=== PATIENT | female | born 1955 | race Caucasian/White ===

== ENCOUNTER 2016-07-17 18:34 | Emergency (ER) | payer MEDICARE, OTHER ==
[~2016-07-17 18:34] MED LIST: ACCU-CHEK COMB1 EACH SC; BENADRYL25 MG PO; CRESTOR10 MG PO; LANTUS **100 UNITS/ SQ; NOVOLOG VI100 UNIT/1 SQ; OS-CAL500 MG PO; PEPCID AC20 MG PO; SYNTHROID88 MCG PO; VITAMIN C500 M1 PO; VITAMIN D1000 UNI1 PO; ZESTRIL2.5 MG PO
[2016-07-17 21:18] LABS: BASOPHIL 0.3 % (0-2); EOSINOPHIL 0.1 % (0-5); HGB 14.2 g/dl (12.5-16.0); LYMPHOCYTE 6.3 % (15-48); MCH 32.3 pg (25.0-31.0); MCHC 33.8 g/dL (32.0-36.0); MCV 95.5 fL (78.0-100.0); MONOCYTE 4.2 % (0-12); MPV 10.2 fL (6.0-9.5); NEUTROPHIL 89.1 % (41-80); PLT 236 K/uL (150-400); RDW 13.2 % (11.5-14.0); WBC 11.1 K/uL (4.0-10.5)
[2016-07-17 21:35] LABS: ALBUMIN 3.6 g/dL (3.5-5.0); BILIRUBIN - TOTAL 0.6 mg/dL (0.1-1.0); CREATININE 0.7 mg/dL (0.5-1.0); GLOBULIN (CALCULATION) 2.5 g/dL (2.2-4.2); POTASSIUM 4.8 mmol/L (3.5-5.1); TOTAL PROTEIN 6.1 g/dL (6.4-8.3)
[2016-07-17 23:26] LABS: BILIRUBIN NEGATIVE (NEGATIVE); BLOOD NEGATIVE Ery/uL (NEGATIVE); CLARITY CLEAR (CLEAR); COLOR YELLOW (YELLOW); GLUCOSE (U) TRACE mg/dL (NORMAL); KETONE (U) 1+ (SMALL) mg/dL (NEGATIVE); LEUKOCYTES TRACE Leu/uL (NEGATIVE); NITRITE NEGATIVE (NEGATIVE); PROTEIN TRACE (LOW) mg/dL (NEGATIVE); SPECIFIC GRAVITY 1.025 (1.001-1.030)
[2016-07-17 23:28] LABS: URINARY RBC RARE
[2016-07-17 23:29] LABS: BACTERIA TRACE
== END 2016-07-18 01:20 | disposition home or self-care (01) ==
LOC: FER 18:34
PROVIDERS: Physician Assistant Medical
DX: E10.649 Type 1 diabetes mellitus with hypoglycemia without coma (principal); R11.2 Nausea with vomiting, unspecified; E10.40 Type 1 diabetes mellitus with diabetic neuropathy, unspecified; F17.210 Nicotine dependence, cigarettes, uncomplicated; Z88.8 Allergy status to other drugs, medicaments and biological substances; Z96.41 Presence of insulin pump (external) (internal)
CPT/HCPCS: 36415; 71010; 80053; 81001; 84484; 85025; 93005; J2405

== ENCOUNTER 2020-03-23 00:48 | Inpatient (IN) | payer MEDICARE ==
[~2020-03-23 00:48] MED LIST changes: +ASCORBIC ACID500 MG PO; +ASPIRIN EC81 MG PO; +AZITHROMYCIN250 MG PO; +BACITRACIN15 GM TOP; +BASAGLAR K100 UNIT/1 SC; +FOLIC ACID1 MG PO; +HUMULIN R100 UNIT/2 SC; +INSULIN PUMP; +LANTUS **100 UNITS/ SC; +LEVAQUIN500 MG PO; +LEVAQUIN750 M1 PO; +LOPRESSOR25 MG PO; +MAGIC MOUTHWASH BLM SSP; +NOVOLOG DO100 UNIT/M SC; +NOVOLOG VI100 UNIT/1 SC; +OMNIPOD DASH1 EACH XX; +VITAMIN D32000 UNI2 PO
[2020-03-23 01:23] LABS: BILIRUBIN NEGATIVE (NEGATIVE); BLOOD NEGATIVE Ery/uL (NEGATIVE); CLARITY CLEAR (CLEAR); COLOR YELLOW (YELLOW); GLUCOSE (U) 3+ mg/dL (NORMAL); LEUKOCYTES NEGATIVE Leu/uL (NEGATIVE); NITRITE NEGATIVE (NEGATIVE); PROTEIN TRACE (LOW) mg/dL (NEGATIVE); SPECIFIC GRAVITY >=1.030 (1.001-1.030); UROBILINOGEN 0.2 mg/dL (0.2-1.0); pH 5.5 (5.0-9.0)
[2020-03-23 01:36] LABS: BASOPHIL 0.4 % (0-2); EOSINOPHIL 0.1 % (0-5); HCT 39.5 % (37.0-47.0); HGB 10.5 g/dl (12.5-16.0); LYMPHOCYTE 6.7 % (15-48); MCH 32.3 pg (25.0-31.0); MCHC 26.6 g/dL (32.0-36.0); MCV 121.5 fL (78.0-100.0); MONOCYTE 7.4 % (0-12); MPV 10.6 fL (6.0-9.5); NEUTROPHIL 82.7 % (41-80); NRBC 0; PLT 323 K/uL (150-400); RBC 3.25 M/uL (4.20-5.40); RDW 13.7 % (11.5-14.0)
[2020-03-23 01:39] LABS: WBC 21.1 K/uL (4.0-10.5)
[2020-03-23 01:41] LABS: AMPHETAMINES NEGATIVE (NEGATIVE); BARBITURATES NEGATIVE (NEGATIVE); ECSTASY (MDMA) NEGATIVE (NEGATIVE); MARIJUANA (THC) NEGATIVE (NEGATIVE); METHADONE NEGATIVE (NEGATIVE); OPIATES NEGATIVE (NEGATIVE); OXYCODONE NEGATIVE (NEGATIVE)
[2020-03-23 01:48] LABS: INR 1.39 (0.9-1.2); PROTHROMBIN TIME 16.2 SECONDS (11.4-13.6); PTT 29.4 SECONDS (22.2-34.7)
[2020-03-23 01:56] LABS: CORONAVIRUS 2019 SARS-COV-2 NEGATIVE (NEGATIVE); INFLUENZA A NAA NEGATIVE (NEGATIVE)
[2020-03-23 01:59] LABS: ALBUMIN 2.5 g/dL (3.4-5.0); ALKALINE PHOSHATASE 141 U/L (46-116); ALT 60 U/L (14-59); AST 89 U/L (15-37); BILIRUBIN - TOTAL 0.6 mg/dL (0.2-1.0); BUN 72 mg/dL (7-18); BUN/CREAT RATIO (CALC) 21.9 RATIO; CHLORIDE 90 mmol/L (98-107); CREATININE 3.29 mg/dL (0.51-0.95); GLOBULIN (CALCULATION) 3.2 g/dL; LIPASE 216 U/L (73-393); MAGNESIUM 2.5 mg/dL (1.8-2.4); TOTAL PROTEIN 5.7 g/dL (6.4-8.2)
[2020-03-23 02:00] LABS: GLUCOSE >750 mg/dL (74-106); POTASSIUM 8.1 mmol/L (3.5-5.1)
[2020-03-23 02:02] LABS: CO2 (BICARBONATE) 6 mmol/L (21-32)
[2020-03-23 02:54] LABS: LACTIC ACID 11.4 mmol/L (0.4-1.9)
[2020-03-23 04:03] LABS: BUN 65 mg/dL (7-18); BUN/CREAT RATIO (CALC) 20.9 RATIO; CHLORIDE 95 mmol/L (98-107); CREATININE 3.11 mg/dL (0.51-0.95)
[2020-03-23 04:04] LABS: GLUCOSE >750 mg/dL (74-106)
[2020-03-23 04:05] LABS: CO2 (BICARBONATE) 7 mmol/L (21-32); POTASSIUM 6.6 mmol/L (3.5-5.1)
[2020-03-23 06:24] LABS: BUN 70 mg/dL (7-18); CHLORIDE 97 mmol/L (98-107); CO2 (BICARBONATE) 10 mmol/L (21-32); CREATININE 3.04 mg/dL (0.51-0.95)
[2020-03-23 06:29] LABS: GLUCOSE >750 mg/dL (74-106); POTASSIUM 4.8 mmol/L (3.5-5.1)
[2020-03-23 11:00] LABS: BUN 58 mg/dL (7-18); BUN/CREAT RATIO (CALC) 24.8 RATIO; CHLORIDE 103 mmol/L (98-107); CO2 (BICARBONATE) 17 mmol/L (21-32); CREATININE 2.34 mg/dL (0.51-0.95); POTASSIUM 3.9 mmol/L (3.5-5.1)
[2020-03-23 11:13] LABS: GLUCOSE >750 mg/dL (74-106)
--- NOTE | 2020-03-23 14:22 | NUR ---
TRANSFERRED BY EMS TO [facility] ICU. REPORT GIVEN TO ISRA HIGGINS. TRANSPORTED WITH LEVOPHED AND INSULIN DRIPS. MOTHER AND SON NOTIFIED OF TRANSFER.
== END 2020-03-23 13:45 | disposition other institution (70) | DRG 871 ==
LOC: FER 00:48 → FICU 03:32
PROVIDERS: Allergy & Immunology Allergy; Nurse Practitioner; Student in an Organized Health Care Education/Training Program; ADMIT Internal Medicine
DX: A41.9 Sepsis, unspecified organism (principal); R65.21 Severe sepsis with septic shock; E11.10 Type 2 diabetes mellitus with ketoacidosis without coma; G93.41 Metabolic encephalopathy; N17.9 Acute kidney failure, unspecified; Z79.4 Long term (current) use of insulin; E87.5 Hyperkalemia; E03.9 Hypothyroidism, unspecified; N18.30 Chronic kidney disease, stage 3 unspecified; E78.5 Hyperlipidemia, unspecified; F41.1 Generalized anxiety disorder; Z98.51 Tubal ligation status; Z98.49 Cataract extraction status, unspecified eye; Z98.890 Other specified postprocedural states; F17.210 Nicotine dependence, cigarettes, uncomplicated
CPT/HCPCS: 36415; 36600; 71045; 80048; 80053; 80305; 81003; 82009; 82803; 82962; 83036; 83605; 83690; 83735; 84100; 84145; 84484; 85025; 85610; 85730; 87040; 93005; 96365; 96375; J0610; J0692; J1644; J2405; J7030; J7060; J7120; U0002

== ENCOUNTER 2020-04-01 02:18 | Emergency (ER) | payer MEDICARE ==
[2020-04-01 02:52] LABS: BASOPHIL 0.6 % (0-2); EOSINOPHIL 1.2 % (0-5); HCT 35.7 % (37.0-47.0); HGB 11.1 g/dl (12.5-16.0); LYMPHOCYTE 27.3 % (15-48); MCH 31.8 pg (25.0-31.0); MCHC 31.1 g/dL (32.0-36.0); MCV 102.3 fL (78.0-100.0); MONOCYTE 9.3 % (0-12); MPV 9.9 fL (6.0-9.5); NRBC 0; PLT 565 K/uL (150-400); RBC 3.49 M/uL (4.20-5.40); RDW 14.6 % (11.5-14.0)
[2020-04-01 02:53] LABS: BILIRUBIN NEGATIVE (NEGATIVE); BLOOD NEGATIVE Ery/uL (NEGATIVE); CLARITY CLEAR (CLEAR); COLOR YELLOW (YELLOW); GLUCOSE (U) NORMAL (NORMAL); LEUKOCYTES NEGATIVE Leu/uL (NEGATIVE); NITRITE NEGATIVE (NEGATIVE); PROTEIN NEGATIVE (NEGATIVE); SPECIFIC GRAVITY 1.025 (1.001-1.030); pH 6.5 (5.0-9.0)
[2020-04-01 02:54] LABS: ALBUMIN 3.2 g/dL (3.4-5.0); BILIRUBIN - TOTAL 0.3 mg/dL (0.2-1.0); BUN/CREAT RATIO (CALC) 18.9 RATIO; CREATININE 1.11 mg/dL (0.51-0.95); GLOBULIN (CALCULATION) 3.2 g/dL; NEUTROPHIL 56.3 % (41-80); POTASSIUM 5.1 mmol/L (3.5-5.1); TOTAL PROTEIN 6.4 g/dL (6.4-8.2)
[2020-04-01 02:56] LABS: AMPHETAMINES NEGATIVE (NEGATIVE); BARBITURATES NEGATIVE (NEGATIVE); ECSTASY (MDMA) NEGATIVE (NEGATIVE); MARIJUANA (THC) NEGATIVE (NEGATIVE); METHADONE NEGATIVE (NEGATIVE); OPIATES NEGATIVE (NEGATIVE); OXYCODONE NEGATIVE (NEGATIVE)
[2020-04-01 03:02] LABS: LACTIC ACID 7.6 mmol/L (0.4-1.9)
[2020-04-01 06:46] LABS: BUN/CREAT RATIO (CALC) 22.7 RATIO; CREATININE 0.97 mg/dL (0.51-0.95); POTASSIUM 5.1 mmol/L (3.5-5.1)
== END 2020-04-01 12:23 | disposition home or self-care (01) ==
LOC: FER 02:18
PROVIDERS: Emergency Medicine
DX: E10.649 Type 1 diabetes mellitus with hypoglycemia without coma (principal); I95.9 Hypotension, unspecified; S00.512A Abrasion of oral cavity, initial encounter; R00.0 Tachycardia, unspecified; I12.9 Hypertensive chronic kidney disease with stage 1 through stage 4 chronic kidney disease, or unspecified chronic kidney disease; E10.22 Type 1 diabetes mellitus with diabetic chronic kidney disease; N18.30 Chronic kidney disease, stage 3 unspecified; F17.210 Nicotine dependence, cigarettes, uncomplicated; Z87.440 Personal history of urinary (tract) infections; Z88.8 Allergy status to other drugs, medicaments and biological substances; Z91.041 Radiographic dye allergy status; Z79.82 Long term (current) use of aspirin; Z79.899 Other long term (current) drug therapy; X58.XXXA Exposure to other specified factors, initial encounter; Z20.822 Contact with and (suspected) exposure to COVID-19
CPT/HCPCS: 36415; 36600; 70450; 71045; 80048; 80053; 80305; 81003; 82550; 82803; 83605; 84484; 85025; 87040; 87088; 93005; 96365; 96367; 96368; 96372; 96375; J2543; J3370; J3480; J7030; J7050; U0002

== ENCOUNTER 2020-04-23 13:37 | Emergency (ER) | payer MEDICARE ==
[2020-04-23 14:04] LABS: BASOPHIL 0.6 % (0-2); EOSINOPHIL 1.4 % (0-5); HCT 41.3 % (37.0-47.0); LYMPHOCYTE 11.6 % (15-48); MCH 31.7 pg (25.0-31.0); MCHC 31.5 g/dL (32.0-36.0); MCV 100.7 fL (78.0-100.0); MONOCYTE 8.1 % (0-12); MPV 10.1 fL (6.0-9.5); NEUTROPHIL 77.8 % (41-80); NRBC 0; PLT 262 K/uL (150-400); RDW 13.9 % (11.5-14.0); WBC 8.9 K/uL (4.0-10.5)
[2020-04-23 14:26] LABS: ALBUMIN 3.4 g/dL (3.4-5.0); BILIRUBIN - TOTAL 0.4 mg/dL (0.2-1.0); BUN/CREAT RATIO (CALC) 19.1 RATIO; CREATININE 0.89 mg/dL (0.51-0.95); GLOBULIN (CALCULATION) 3.6 g/dL; POTASSIUM 4.1 mmol/L (3.5-5.1)
== END 2020-04-23 16:50 | disposition home or self-care (01) ==
LOC: FER 13:37
PROVIDERS: Physician Assistant
DX: E10.649 Type 1 diabetes mellitus with hypoglycemia without coma (principal); E10.43 Type 1 diabetes mellitus with diabetic autonomic (poly)neuropathy; K31.84 Gastroparesis; E10.22 Type 1 diabetes mellitus with diabetic chronic kidney disease; N18.9 Chronic kidney disease, unspecified; F17.210 Nicotine dependence, cigarettes, uncomplicated; Z88.8 Allergy status to other drugs, medicaments and biological substances; Z91.041 Radiographic dye allergy status
CPT/HCPCS: 36415; 80053; 85025; J2405

== ENCOUNTER 2020-04-25 23:02 | Emergency (ER) | payer MEDICARE ==
[2020-04-26 00:03] LABS: ALBUMIN 3.5 g/dL (3.4-5.0); BILIRUBIN - TOTAL 0.4 mg/dL (0.2-1.0); BUN/CREAT RATIO (CALC) 20.4 RATIO; CREATININE 0.93 mg/dL (0.51-0.95); GLOBULIN (CALCULATION) 3.7 g/dL; POTASSIUM 3.9 mmol/L (3.5-5.1); TOTAL PROTEIN 7.2 g/dL (6.4-8.2)
[2020-04-26 00:20] LABS: BASOPHIL 0.4 % (0-2); EOSINOPHIL 0.7 % (0-5); HCT 34.7 % (37.0-47.0); HGB 11.3 g/dl (12.5-16.0); LYMPHOCYTE 9.1 % (15-48); MCH 32.1 pg (25.0-31.0); MCHC 32.6 g/dL (32.0-36.0); MCV 98.6 fL (78.0-100.0); MONOCYTE 8.2 % (0-12); MPV 9.8 fL (6.0-9.5); NEUTROPHIL 81.2 % (41-80); NRBC 0; PLT 208 K/uL (150-400); RBC 3.52 M/uL (4.20-5.40); RDW 13.6 % (11.5-14.0); WBC 7.2 K/uL (4.0-10.5)
[2020-04-26 03:55] LABS: BILIRUBIN NEGATIVE (NEGATIVE); BLOOD NEGATIVE Ery/uL (NEGATIVE); CLARITY CLEAR (CLEAR); COLOR YELLOW (YELLOW); GLUCOSE (U) 1+ mg/dL (NORMAL); LEUKOCYTES NEGATIVE Leu/uL (NEGATIVE); NITRITE NEGATIVE (NEGATIVE); PROTEIN TRACE (LOW) mg/dL (NEGATIVE); SPECIFIC GRAVITY 1.025 (1.001-1.030); UROBILINOGEN 0.2 mg/dL (0.2-1.0); pH 5.5 (5.0-9.0)
[2020-04-26 03:58] LABS: BACTERIA TRACE; URINARY RBC RARE
[2020-04-26] MEDS ORDERED: ZPAK PO (05:29)
== END 2020-04-26 09:40 | disposition home or self-care (01) ==
LOC: FER 23:02
PROVIDERS: Emergency Medicine Emergency Medical Services
DX: E10.649 Type 1 diabetes mellitus with hypoglycemia without coma (principal); J06.9 Acute upper respiratory infection, unspecified; Z98.890 Other specified postprocedural states; Z90.49 Acquired absence of other specified parts of digestive tract; Z88.8 Allergy status to other drugs, medicaments and biological substances
CPT/HCPCS: 36415; 71045; 80053; 81001; 84484; 85025; J7030

== ENCOUNTER 2020-05-05 18:28 | Emergency (ER) | payer MEDICARE ==
[~2020-05-05 18:28] MED LIST changes: +ZPAK PO
[2020-05-05 20:00] LABS: BASOPHIL 0.5 % (0-2); EOSINOPHIL 0.9 % (0-5); HGB 12.4 g/dl (12.5-16.0); LYMPHOCYTE 10.4 % (15-48); MCHC 32.6 g/dL (32.0-36.0); MCV 97.9 fL (78.0-100.0); MPV 9.9 fL (6.0-9.5); NEUTROPHIL 79.8 % (41-80); NRBC 0; PLT 274 K/uL (150-400); RBC 3.88 M/uL (4.20-5.40); RDW 13.2 % (11.5-14.0); WBC 7.7 K/uL (4.0-10.5)
[2020-05-05 20:17] LABS: BUN/CREAT RATIO (CALC) 16.7 RATIO; CREATININE 0.9 mg/dL (0.51-0.95); POTASSIUM 4.5 mmol/L (3.5-5.1)
== END 2020-05-05 22:35 | disposition home or self-care (01) ==
LOC: FER 18:28
PROVIDERS: Nurse Practitioner Family
DX: E10.649 Type 1 diabetes mellitus with hypoglycemia without coma (principal); T68.XXXA Hypothermia, initial encounter; Z88.8 Allergy status to other drugs, medicaments and biological substances
CPT/HCPCS: 36415; 80048; 85025; 99285; J7120

== ENCOUNTER 2020-06-22 00:05 | Emergency (ER) | payer MEDICARE ==
[2020-06-22 00:32] LABS: BASOPHIL 0.7 % (0-2); EOSINOPHIL 1.3 % (0-5); HCT 43.2 % (37.0-47.0); HGB 14.1 g/dl (12.5-16.0); LYMPHOCYTE 20.1 % (15-48); MCH 31.1 pg (25.0-31.0); MCHC 32.6 g/dL (32.0-36.0); MCV 95.2 fL (78.0-100.0); MONOCYTE 9.4 % (0-12); MPV 10.6 fL (6.0-9.5); NRBC 0; PLT 287 K/uL (150-400); RBC 4.54 M/uL (4.20-5.40); WBC 8.8 K/uL (4.0-10.5)
[2020-06-22 01:00] LABS: ALBUMIN 3.8 g/dL (3.4-5.0); BILIRUBIN - TOTAL 0.4 mg/dL (0.2-1.0); BUN/CREAT RATIO (CALC) 17.4 RATIO; CREATININE 1.09 mg/dL (0.51-0.95); GLOBULIN (CALCULATION) 3.7 g/dL; POTASSIUM 5.5 mmol/L (3.5-5.1); TOTAL PROTEIN 7.5 g/dL (6.4-8.2)
== END 2020-06-22 06:35 | disposition home or self-care (01) ==
LOC: FER 00:05
PROVIDERS: Emergency Medicine
DX: E16.2 Hypoglycemia, unspecified (principal); R40.1 Stupor; Z88.8 Allergy status to other drugs, medicaments and biological substances
CPT/HCPCS: 36415; 80053; 84443; 85025; 93005; J7042

== ENCOUNTER 2020-07-21 21:00 | Emergency (ER) | payer MEDICARE ==
[2020-07-21 22:20] LABS: BASOPHIL 0.4 % (0-2); EOSINOPHIL 0.8 % (0-5); HCT 41.3 % (37.0-47.0); HGB 13.3 g/dl (12.5-16.0); LYMPHOCYTE 8.2 % (15-48); MCH 30.2 pg (25.0-31.0); MCHC 32.2 g/dL (32.0-36.0); MCV 93.9 fL (78.0-100.0); MONOCYTE 7.1 % (0-12); MPV 9.9 fL (6.0-9.5); NEUTROPHIL 83.1 % (41-80); NRBC 0; PLT 285 K/uL (150-400); RDW 13.8 % (11.5-14.0); WBC 8.9 K/uL (4.0-10.5)
[2020-07-21 22:46] LABS: ALBUMIN 3.4 g/dL (3.4-5.0); BILIRUBIN - TOTAL 0.5 mg/dL (0.2-1.0); CREATININE 1.01 mg/dL (0.51-0.95); GLOBULIN (CALCULATION) 3.2 g/dL; POTASSIUM 5.2 mmol/L (3.5-5.1); TOTAL PROTEIN 6.6 g/dL (6.4-8.2)
[2020-07-21 22:48] LABS: LACTIC ACID 1.2 mmol/L (0.4-1.9)
== END 2020-07-22 05:55 | disposition home or self-care (01) ==
LOC: FER 21:00
PROVIDERS: Emergency Medicine
DX: E11.649 Type 2 diabetes mellitus with hypoglycemia without coma (principal); I10 Essential (primary) hypertension; Z88.8 Allergy status to other drugs, medicaments and biological substances; Z79.82 Long term (current) use of aspirin; Z96.41 Presence of insulin pump (external) (internal); Z79.899 Other long term (current) drug therapy
CPT/HCPCS: 36415; 71045; 80053; 83605; 84484; 85025; 93005; J7030

== ENCOUNTER 2020-07-29 23:50 | Emergency (ER) | payer MEDICARE ==
[2020-07-30 01:37] LABS: BASOPHIL 0.5 % (0-2); EOSINOPHIL 0.8 % (0-5); HCT 40.7 % (37.0-47.0); HGB 13.3 g/dl (12.5-16.0); LYMPHOCYTE 8.9 % (15-48); MCH 30.6 pg (25.0-31.0); MCHC 32.7 g/dL (32.0-36.0); MCV 93.8 fL (78.0-100.0); MONOCYTE 7.6 % (0-12); MPV 10.2 fL (6.0-9.5); NEUTROPHIL 81.7 % (41-80); NRBC 0; PLT 248 K/uL (150-400); RBC 4.34 M/uL (4.20-5.40); WBC 8.6 K/uL (4.0-10.5)
[2020-07-30 01:50] LABS: ALBUMIN 3.4 g/dL (3.4-5.0); ALKALINE PHOSHATASE 132 U/L (46-116); ALT 19 U/L (14-59); AST 21 U/L (15-37); BILIRUBIN - TOTAL 0.4 mg/dL (0.2-1.0); BUN 18 mg/dL (7-18); BUN/CREAT RATIO (CALC) 19.8 RATIO; C-REACTIVE PROTEIN < 0.20 mg/dL (<=0.90); CHLORIDE 103 mmol/L (98-107); CO2 (BICARBONATE) 27 mmol/L (21-32); CREATININE 0.91 mg/dL (0.51-0.95); GLOBULIN (CALCULATION) 3.7 g/dL; GLUCOSE 117 mg/dL (74-106); POTASSIUM 4.4 mmol/L (3.5-5.1); TOTAL PROTEIN 7.1 g/dL (6.4-8.2)
[2020-07-30 01:54] LABS: LACTIC ACID 1.4 mmol/L (0.4-1.9)
[2020-07-30 04:18] LABS: CLARITY HAZY (CLEAR); COLOR YELLOW (YELLOW); PROTEIN 1+ mg/dL (NEGATIVE); SPECIFIC GRAVITY > 1.030 (1.001-1.030); pH 5.5 (5.0-9.0)
[2020-07-30 04:19] LABS: BILIRUBIN NEGATIVE (NEGATIVE); BLOOD NEGATIVE Ery/uL (NEGATIVE); GLUCOSE (U) NORMAL (NORMAL); LEUKOCYTES TRACE Leu/uL (NEGATIVE); NITRITE NEGATIVE (NEGATIVE); UROBILINOGEN 0.2 mg/dL (0.2-1.0)
[2020-07-30 04:20] LABS: BACTERIA 2+; MUCOUS TRACE
[2020-07-30 04:21] LABS: AMORPHOUS URATES CRYSTALS TRACE
== END 2020-07-30 10:45 | disposition home or self-care (01) ==
LOC: FER 23:50
PROVIDERS: Emergency Medicine Emergency Medical Services
DX: E10.649 Type 1 diabetes mellitus with hypoglycemia without coma (principal); E86.0 Dehydration; I10 Essential (primary) hypertension; F17.210 Nicotine dependence, cigarettes, uncomplicated; Z88.8 Allergy status to other drugs, medicaments and biological substances
CPT/HCPCS: 36415; 71045; 80053; 81001; 83605; 84484; 85025; 86140; 87040; J2405; J7030; J7120

== ENCOUNTER 2020-11-07 13:00 | Emergency (ER) | payer MEDICARE ==
[2020-11-07 14:15] LABS: BASOPHIL 0.8 % (0-2); EOSINOPHIL 0.8 % (0-5); HCT 46.5 % (37.0-47.0); HGB 15.2 g/dl (12.5-16.0); LYMPHOCYTE 13.4 % (15-48); MCH 32.2 pg (25.0-31.0); MCHC 32.7 g/dL (32.0-36.0); MCV 98.5 fL (78.0-100.0); MONOCYTE 9.2 % (0-12); MPV 9.8 fL (6.0-9.5); NEUTROPHIL 75.5 % (41-80); NRBC 0; PLT 245 K/uL (150-400); RBC 4.72 M/uL (4.20-5.40); WBC 6.6 K/uL (4.0-10.5)
[2020-11-07 14:43] LABS: BUN/CREAT RATIO (CALC) 20.6 RATIO; CREATININE 1.02 mg/dL (0.51-0.95); POTASSIUM 4.6 mmol/L (3.5-5.1)
== END 2020-11-07 16:24 | disposition home or self-care (01) ==
LOC: FER 13:00
PROVIDERS: Nurse Practitioner Family
DX: E10.649 Type 1 diabetes mellitus with hypoglycemia without coma (principal); Z88.8 Allergy status to other drugs, medicaments and biological substances
CPT/HCPCS: 36415; 80048; 85025; J7120

== ENCOUNTER 2020-11-10 09:34 | Emergency (ER) | payer OTHER, MEDICARE ==
[~2020-11-10] VITALS: Ht 152.4 cm; Wt 52.2 kg
[2020-11-10 10:10] LABS: BASOPHIL 0.8 % (0-2); EOSINOPHIL 1.2 % (0-5); HCT 45.6 % (37.0-47.0); HGB 14.9 g/dl (12.5-16.0); LYMPHOCYTE 16.5 % (15-48); MCH 32.3 pg (25.0-31.0); MCHC 32.7 g/dL (32.0-36.0); MCV 98.7 fL (78.0-100.0); MONOCYTE 8.7 % (0-12); MPV 9.7 fL (6.0-9.5); NEUTROPHIL 72.2 % (41-80); NRBC 0; PLT 269 K/uL (150-400); RBC 4.62 M/uL (4.20-5.40); RDW 13.1 % (11.5-14.0); WBC 8.4 K/uL (4.0-10.5)
[2020-11-10 10:11] LABS: BILIRUBIN NEGATIVE (NEGATIVE); BLOOD NEGATIVE Ery/uL (NEGATIVE); CLARITY CLEAR (CLEAR); COLOR YELLOW (YELLOW); GLUCOSE (U) 3+ mg/dL (NORMAL); LEUKOCYTES NEGATIVE Leu/uL (NEGATIVE); NITRITE NEGATIVE (NEGATIVE); PROTEIN NEGATIVE (NEGATIVE); SPECIFIC GRAVITY 1.025 (1.001-1.030); UROBILINOGEN 0.2 mg/dL (0.2-1.0); pH 5.5 (5.0-9.0)
[2020-11-10 10:35] LABS: ALBUMIN 3.6 g/dL (3.4-5.0); BILIRUBIN - TOTAL 0.4 mg/dL (0.2-1.0); BUN/CREAT RATIO (CALC) 23.4 RATIO; CREATININE 1.11 mg/dL (0.51-0.95); GLOBULIN (CALCULATION) 3.7 g/dL; POTASSIUM 4.3 mmol/L (3.5-5.1); TOTAL PROTEIN 7.3 g/dL (6.4-8.2)
== END 2020-11-10 14:55 | disposition home or self-care (01) ==
LOC: FER 09:34
PROVIDERS: Emergency Medicine
DX: T68.XXXA Hypothermia, initial encounter (principal); E10.649 Type 1 diabetes mellitus with hypoglycemia without coma; E07.9 Disorder of thyroid, unspecified; Z88.8 Allergy status to other drugs, medicaments and biological substances
CPT/HCPCS: 36415; 70450; 71045; 80053; 81003; 85025; 93005

== ENCOUNTER 2020-11-18 12:49 | Emergency (ER) | payer OTHER, MEDICARE ==
[2020-11-18 13:17] LABS: BASOPHIL 0.4 % (0-2); EOSINOPHIL 0.4 % (0-5); HCT 42.4 % (37.0-47.0); LYMPHOCYTE 8.4 % (15-48); MCH 32.5 pg (25.0-31.0); MCV 98.4 fL (78.0-100.0); MONOCYTE 5.4 % (0-12); MPV 10.1 fL (6.0-9.5); NEUTROPHIL 84.9 % (41-80); NRBC 0; PLT 240 K/uL (150-400); RBC 4.31 M/uL (4.20-5.40); RDW 12.6 % (11.5-14.0); WBC 9.4 K/uL (4.0-10.5)
[2020-11-18 13:36] LABS: ALBUMIN 3.5 g/dL (3.4-5.0); BILIRUBIN - TOTAL 0.6 mg/dL (0.2-1.0); BUN/CREAT RATIO (CALC) 24.2 RATIO; CREATININE 0.91 mg/dL (0.51-0.95); GLOBULIN (CALCULATION) 3.2 g/dL; POTASSIUM 3.8 mmol/L (3.5-5.1); TOTAL PROTEIN 6.7 g/dL (6.4-8.2)
== END 2020-11-18 17:51 | disposition home or self-care (01) ==
LOC: FER 12:49
PROVIDERS: Emergency Medicine
DX: E11.649 Type 2 diabetes mellitus with hypoglycemia without coma (principal); T38.3X5A Adverse effect of insulin and oral hypoglycemic [antidiabetic] drugs, initial encounter; F17.210 Nicotine dependence, cigarettes, uncomplicated; Z88.8 Allergy status to other drugs, medicaments and biological substances
CPT/HCPCS: 36415; 80053; 85025; 99284

== ENCOUNTER 2021-03-05 08:35 | Emergency (ER) | payer MEDICARE ==
[2021-03-05 09:14] LABS: BASOPHIL 0.7 % (0-2); EOSINOPHIL 1.3 % (0-5); HCT 44.7 % (37.0-47.0); HGB 14.5 g/dl (12.5-16.0); LYMPHOCYTE 14.7 % (15-48); MCH 32.6 pg (25.0-31.0); MCHC 32.4 g/dL (32.0-36.0); MCV 100.4 fL (78.0-100.0); MONOCYTE 8.9 % (0-12); MPV 10.9 fL (6.0-9.5); NEUTROPHIL 73.9 % (41-80); NRBC 0; PLT 186 K/uL (150-400); RBC 4.45 M/uL (4.20-5.40); RDW 12.8 % (11.5-14.0); WBC 9.4 K/uL (4.0-10.5)
[2021-03-05 11:07] LABS: ALBUMIN 3.4 g/dL (3.4-5.0); BILIRUBIN - TOTAL 0.4 mg/dL (0.2-1.0); BUN/CREAT RATIO (CALC) 20.3 RATIO; CREATININE 1.23 mg/dL (0.51-0.95); FT4 (FREE T4) 1.1 ng/dL (0.76-1.46); GLOBULIN (CALCULATION) 3.1 g/dL; POTASSIUM 4.3 mmol/L (3.5-5.1); TOTAL PROTEIN 6.5 g/dL (6.4-8.2)
== END 2021-03-05 16:13 | disposition home or self-care (01) ==
LOC: FER 08:35
PROVIDERS: Emergency Medicine
DX: E10.649 Type 1 diabetes mellitus with hypoglycemia without coma (principal); F17.210 Nicotine dependence, cigarettes, uncomplicated; Z88.8 Allergy status to other drugs, medicaments and biological substances; Z91.041 Radiographic dye allergy status
CPT/HCPCS: 36415; 80053; 83690; 84439; 84443; 85025; J2405; J3480

== ENCOUNTER 2021-03-10 16:23 | Emergency (ER) | payer MEDICARE ==
[2021-03-10 18:23] LABS: BASOPHIL 0.4 % (0-2); EOSINOPHIL 0.7 % (0-5); HCT 40.8 % (37.0-47.0); HGB 13.4 g/dl (12.5-16.0); LYMPHOCYTE 11.2 % (15-48); MCH 32.4 pg (25.0-31.0); MCHC 32.8 g/dL (32.0-36.0); MCV 98.6 fL (78.0-100.0); MONOCYTE 7.1 % (0-12); MPV 9.6 fL (6.0-9.5); NEUTROPHIL 80.2 % (41-80); NRBC 0; PLT 261 K/uL (150-400); RBC 4.14 M/uL (4.20-5.40); RDW 12.4 % (11.5-14.0); WBC 7.2 K/uL (4.0-10.5)
[2021-03-10 18:41] LABS: ALBUMIN 3.2 g/dL (3.4-5.0); BILIRUBIN - TOTAL 0.6 mg/dL (0.2-1.0); BUN/CREAT RATIO (CALC) 25.8 RATIO; CREATININE 0.89 mg/dL (0.51-0.95); GLOBULIN (CALCULATION) 3.3 g/dL; TOTAL PROTEIN 6.5 g/dL (6.4-8.2)
[2021-03-11 00:17] LABS: CORONAVIRUS 2019 SARS-COV-2 NEGATIVE (NEGATIVE); INFLUENZA A NAA NEGATIVE (NEGATIVE)
== END 2021-03-11 01:19 | disposition home or self-care (01) ==
LOC: FER 16:23
PROVIDERS: Emergency Medicine; Emergency Medicine Emergency Medical Services
DX: E11.649 Type 2 diabetes mellitus with hypoglycemia without coma (principal); Z20.822 Contact with and (suspected) exposure to COVID-19; Z88.8 Allergy status to other drugs, medicaments and biological substances; Z91.041 Radiographic dye allergy status
CPT/HCPCS: 36415; 80053; 85025; U0002

== ENCOUNTER 2021-05-14 09:55 | Emergency (ER) | payer MEDICARE ==
[2021-05-14 10:52] LABS: BASOPHIL 0.8 % (0-2); EOSINOPHIL 1.1 % (0-5); HCT 41.5 % (37.0-47.0); HGB 13.5 g/dl (12.5-16.0); LYMPHOCYTE 14.6 % (15-48); MCH 32.4 pg (25.0-31.0); MCHC 32.5 g/dL (32.0-36.0); MCV 99.5 fL (78.0-100.0); MONOCYTE 8.9 % (0-12); MPV 10.1 fL (6.0-9.5); NEUTROPHIL 74.4 % (41-80); NRBC 0; PLT 208 K/uL (150-400); RBC 4.17 M/uL (4.20-5.40); RDW 12.1 % (11.5-14.0); WBC 6.3 K/uL (4.0-10.5)
[2021-05-14 11:26] LABS: ALBUMIN 3.4 g/dL (3.4-5.0); BILIRUBIN - TOTAL 0.6 mg/dL (0.2-1.0); FT4 (FREE T4) 1.2 ng/dL (0.76-1.46); GLOBULIN (CALCULATION) 2.8 g/dL; POTASSIUM 4.5 mmol/L (3.5-5.1); TOTAL PROTEIN 6.2 g/dL (6.4-8.2)
== END 2021-05-14 15:50 | disposition home or self-care (01) ==
LOC: FER 09:55
PROVIDERS: Emergency Medicine
DX: E11.649 Type 2 diabetes mellitus with hypoglycemia without coma (principal); I10 Essential (primary) hypertension; F17.210 Nicotine dependence, cigarettes, uncomplicated; Z88.8 Allergy status to other drugs, medicaments and biological substances; Z91.041 Radiographic dye allergy status
CPT/HCPCS: 36415; 80053; 84439; 84443; 85025; J2765

== ENCOUNTER 2021-05-31 10:17 | Inpatient (IN) | payer MEDICARE, MEDICAID ==
[~2021-05-31] VITALS: Ht 167.6 cm; Wt 114.0 kg
[2021-05-31 11:11] LABS: BASOPHIL 0.3 % (0-2); EOSINOPHIL 0 % (0-5); HGB 13.1 g/dl (12.5-16.0); LYMPHOCYTE 3.5 % (15-48); MCH 32.3 pg (25.0-31.0); MCHC 31.2 g/dL (32.0-36.0); MCV 103.7 fL (78.0-100.0); MONOCYTE 6.7 % (0-12); MPV 11.1 fL (6.0-9.5); NEUTROPHIL 88.2 % (41-80); PLT 264 K/uL (150-400); RBC 4.05 M/uL (4.20-5.40); RDW 12.5 % (11.5-14.0)
[2021-05-31 11:14] LABS: WBC 23.4 K/uL (4.0-10.5)
[2021-05-31 11:23] LABS: BILIRUBIN 1+ mg/dL (NEGATIVE); BLOOD TRACE-INTACT Ery/uL (NEGATIVE); CLARITY CLEAR (CLEAR); COLOR YELLOW (YELLOW); GLUCOSE (U) 1+ mg/dL (NORMAL); LEUKOCYTES NEGATIVE Leu/uL (NEGATIVE); NITRITE NEGATIVE (NEGATIVE); PROTEIN 2+ mg/dL (NEGATIVE); SPECIFIC GRAVITY >=1.030 (1.001-1.030); UROBILINOGEN 0.2 mg/dL (0.2-1.0)
[2021-05-31 11:40] LABS: CORONAVIRUS 2019 SARS-COV-2 NEGATIVE (NEGATIVE); INFLUENZA A NAA NEGATIVE (NEGATIVE)
[2021-05-31 11:44] LABS: URINARY WBC RARE
[2021-05-31 11:45] LABS: AMORPHOUS URATES CRYSTALS TRACE
[2021-05-31 11:46] LABS: BACTERIA TRACE
[2021-05-31 11:49] LABS: LACTIC ACID 5.1 mmol/L (0.4-1.9)
[2021-05-31 12:01] LABS: BAND 2 % (0-10); EOSINOPHIL(M) 1 % (0-5); LYMPHOCYTE(M) 2 % (15-48); MONOCYTE(M) 4 % (0-12); NEUTROPHILS(M) 91 % (41-80); TOTAL CELL COUNT 100
[2021-05-31 12:02] LABS: PLATELET ESTIMATE NORMAL
[2021-05-31 12:03] LABS: NRBC 0; PLATELET MORPHOLOGY NORMAL
[2021-05-31 12:12] LABS: ALBUMIN 3.4 g/dL (3.4-5.0); BILIRUBIN - TOTAL 1.1 mg/dL (0.2-1.0); BUN/CREAT RATIO (CALC) 24.1 RATIO; CREATININE 2.7 mg/dL (0.51-0.95); GLOBULIN (CALCULATION) 4.2 g/dL; POTASSIUM 6.4 mmol/L (3.5-5.1); TOTAL PROTEIN 7.6 g/dL (6.4-8.2)
[2021-05-31 16:20] LABS: BUN/CREAT RATIO (CALC) 23.4 RATIO; CREATININE 2.74 mg/dL (0.51-0.95); POTASSIUM 5.9 mmol/L (3.5-5.1)
[2021-05-31 16:41] LABS: HCT 38.2 % (37.0-47.0); HGB 11.7 g/dl (12.5-16.0); MCHC 30.6 g/dL (32.0-36.0); MCV 107.6 fL (78.0-100.0); MPV 10.5 fL (6.0-9.5); RBC 3.55 M/uL (4.20-5.40); RDW 12.2 % (11.5-14.0); WBC 23.7 K/uL (4.0-10.5)
[2021-05-31 17:57] LABS: BUN/CREAT RATIO (CALC) 22.9 RATIO; CREATININE 2.66 mg/dL (0.51-0.95); POTASSIUM 4.6 mmol/L (3.5-5.1)
[2021-05-31 21:46] LABS: BUN/CREAT RATIO (CALC) 25.2 RATIO; CREATININE 2.38 mg/dL (0.51-0.95); POTASSIUM 3.7 mmol/L (3.5-5.1)
[2021-06-01 02:12] LABS: BUN/CREAT RATIO (CALC) 24.9 RATIO; CREATININE 2.05 mg/dL (0.51-0.95)
[2021-06-01 05:24] LABS: BASOPHIL 0.1 % (0-2); EOSINOPHIL 0 % (0-5); HCT 32.2 % (37.0-47.0); LYMPHOCYTE 3.3 % (15-48); MCHC 34.2 g/dL (32.0-36.0); MONOCYTE 8.4 % (0-12); MPV 9.7 fL (6.0-9.5); NEUTROPHIL 86.6 % (41-80); NRBC 0; PLT 220 K/uL (150-400); RBC 3.33 M/uL (4.20-5.40); RDW 12.5 % (11.5-14.0)
[2021-06-01 05:33] LABS: MCV 96.7 fL (78.0-100.0)
[2021-06-01 05:43] LABS: ALBUMIN 2.3 g/dL (3.4-5.0); BILIRUBIN - TOTAL 0.6 mg/dL (0.2-1.0); C-REACTIVE PROTEIN 8.2 mg/dL (<=0.90); CREATININE 1.96 mg/dL (0.51-0.95); GLOBULIN (CALCULATION) 2.8 g/dL; MAGNESIUM 1.6 mg/dL (1.8-2.4); PHOSPHORUS 3.5 mg/dL (2.6-4.7); POTASSIUM 4.6 mmol/L (3.5-5.1)
[2021-06-01 05:44] LABS: TOTAL PROTEIN 5.1 g/dL (6.4-8.2)
[2021-06-01 12:51] LABS: BASOPHIL 0.2 % (0-2); EOSINOPHIL 0 % (0-5); HCT 31.4 % (37.0-47.0); HGB 10.6 g/dl (12.5-16.0); LYMPHOCYTE 4.6 % (15-48); MCH 32.7 pg (25.0-31.0); MCHC 33.8 g/dL (32.0-36.0); MCV 96.9 fL (78.0-100.0); MPV 9.9 fL (6.0-9.5); NEUTROPHIL 89.8 % (41-80); NRBC 0; PLT 197 K/uL (150-400); RBC 3.24 M/uL (4.20-5.40); RDW 12.7 % (11.5-14.0); WBC 16.4 K/uL (4.0-10.5)
[2021-06-01 13:20] LABS: IRON % SATURATION 42.9 %SAT (20-50)
[2021-06-01 13:34] LABS: BUN/CREAT RATIO (CALC) 26.4 RATIO; CREATININE 1.63 mg/dL (0.51-0.95); MAGNESIUM 2.1 mg/dL (1.8-2.4); PHOSPHORUS 2.5 mg/dL (2.6-4.7); POTASSIUM 4.4 mmol/L (3.5-5.1)
[2021-06-02 06:01] LABS: BASOPHIL 0.2 % (0-2); EOSINOPHIL 0.6 % (0-5); HCT 33.3 % (37.0-47.0); MCH 32.3 pg (25.0-31.0); MCV 97.7 fL (78.0-100.0); MONOCYTE 6.4 % (0-12); NEUTROPHIL 85.4 % (41-80); NRBC 0; PLT 176 K/uL (150-400); RBC 3.41 M/uL (4.20-5.40); RDW 12.8 % (11.5-14.0); WBC 12.3 K/uL (4.0-10.5)
[2021-06-02 06:16] LABS: ALBUMIN 2.3 g/dL (3.4-5.0); BILIRUBIN - TOTAL 0.8 mg/dL (0.2-1.0); BUN/CREAT RATIO (CALC) 22.6 RATIO; CREATININE 1.24 mg/dL (0.51-0.95); GLOBULIN (CALCULATION) 2.8 g/dL; MAGNESIUM 1.7 mg/dL (1.8-2.4); POTASSIUM 4.5 mmol/L (3.5-5.1); TOTAL PROTEIN 5.1 g/dL (6.4-8.2)
[2021-06-03 05:50] LABS: BASOPHIL 0.4 % (0-2); EOSINOPHIL 0.9 % (0-5); LYMPHOCYTE 11.9 % (15-48); MCH 32.4 pg (25.0-31.0); MCHC 34.3 g/dL (32.0-36.0); MCV 94.6 fL (78.0-100.0); MONOCYTE 9.1 % (0-12); MPV 9.5 fL (6.0-9.5); NEUTROPHIL 77.3 % (41-80); NRBC 0; PLT 164 K/uL (150-400); RDW 12.1 % (11.5-14.0); WBC 7.7 K/uL (4.0-10.5)
[2021-06-03 06:54] LABS: BUN/CREAT RATIO (CALC) 12.8 RATIO; CREATININE 0.94 mg/dL (0.51-0.95); FOLIC ACID (SERUM) 33.8 ng/mL (8.6-58.9); MAGNESIUM 1.9 mg/dL (1.8-2.4); PHOSPHORUS 1.9 mg/dL (2.6-4.7); POTASSIUM 4.3 mmol/L (3.5-5.1)
[2021-06-04] MEDS ORDERED: FLORANEX TABLE1 EACH PO (08:49)
[2021-06-04] MEDS ORDERED: AUGMENTIN 500-1 EACH PO (08:49)
== END 2021-06-04 13:09 | disposition home or self-care (01) | DRG 871 ==
LOC: FER 10:17 → FICU 12:45
PROVIDERS: Emergency Medicine; Nurse Practitioner; ADMIT Internal Medicine
PROC: 3E03329 Introduction of Other Anti-infective into Peripheral Vein, Percutaneous Approach (ICD-10-PCS; principal; 2021-05-31)
PROC: 3E033XZ Introduction of Vasopressor into Peripheral Vein, Percutaneous Approach (ICD-10-PCS; 2021-05-31)
PROC: 06HY33Z Insertion of Infusion Device into Lower Vein, Percutaneous Approach (ICD-10-PCS; 2021-05-31)
DX: A41.9 Sepsis, unspecified organism (principal); E10.10 Type 1 diabetes mellitus with ketoacidosis without coma; R65.21 Severe sepsis with septic shock; G93.41 Metabolic encephalopathy; J96.01 Acute respiratory failure with hypoxia; N17.9 Acute kidney failure, unspecified; E87.5 Hyperkalemia; Z20.822 Contact with and (suspected) exposure to COVID-19; E10.22 Type 1 diabetes mellitus with diabetic chronic kidney disease; I12.9 Hypertensive chronic kidney disease with stage 1 through stage 4 chronic kidney disease, or unspecified chronic kidney disease; N18.30 Chronic kidney disease, stage 3 unspecified; E10.43 Type 1 diabetes mellitus with diabetic autonomic (poly)neuropathy; K31.84 Gastroparesis; E03.9 Hypothyroidism, unspecified; E10.319 Type 1 diabetes mellitus with unspecified diabetic retinopathy without macular edema; F17.210 Nicotine dependence, cigarettes, uncomplicated; E78.5 Hyperlipidemia, unspecified; F41.1 Generalized anxiety disorder; Z90.49 Acquired absence of other specified parts of digestive tract; Z87.440 Personal history of urinary (tract) infections; Z98.49 Cataract extraction status, unspecified eye; Z98.890 Other specified postprocedural states; Z88.8 Allergy status to other drugs, medicaments and biological substances; Z88.1 Allergy status to other antibiotic agents; Z79.82 Long term (current) use of aspirin; Z79.899 Other long term (current) drug therapy
CPT/HCPCS: 36415; 36600; 71045; 74018; 80048; 80053; 81001; 82009; 82607; 82746; 82803; 82962; 83036; 83540; 83550; 83605; 83735; 83880; 84100; 84145; 84484; 85025; 86140; 87040; 87088; 93005; 94010; 94667; 94668; 96365; 96367; 96375; C1751; J1450; J1644; J1815; J2405; J2543; J3370; J3475; J3480; J7030; J7040; J7050; U0002

== ENCOUNTER 2021-08-27 14:18 | Day surgery (SDCO) | payer MEDICARE ==
[~2021-08-27] VITALS: Ht 167.6 cm; Wt 50.5 kg
[~2021-08-27 14:18] MED LIST changes: +AUGMENTIN 500-1 EACH PO; +COZAAR50 MG PO; +FLORANEX TABLE1 EACH PO
[2021-08-27 15:59] LABS: BASOPHIL 0.3 % (0-2); EOSINOPHIL 0.3 % (0-5); HCT 41.4 % (37.0-47.0); HGB 13.5 g/dl (12.5-16.0); LYMPHOCYTE 10.1 % (15-48); MCH 31.9 pg (25.0-31.0); MCHC 32.6 g/dL (32.0-36.0); MCV 97.9 fL (78.0-100.0); NEUTROPHIL 80.8 % (41-80); NRBC 0; PLT 194 K/uL (150-400); RBC 4.23 M/uL (4.20-5.40); RDW 12.1 % (11.5-14.0); WBC 6.1 K/uL (4.0-10.5)
[2021-08-27 16:08] LABS: INR 0.94 (0.9-1.2); PROTHROMBIN TIME 12.3 SECONDS (11.9-13.9); PTT 26.2 SECONDS (24.9-34.6)
[2021-08-27 16:22] LABS: ALBUMIN 3.1 g/dL (3.4-5.0); ALKALINE PHOSHATASE 93 U/L (46-116); ALT 27 U/L (14-59); AST 25 U/L (15-37); BILIRUBIN - TOTAL 0.4 mg/dL (0.2-1.0); BUN 16 mg/dL (7-18); BUN/CREAT RATIO (CALC) 18.2 RATIO; CHLORIDE 106 mmol/L (98-107); CO2 (BICARBONATE) 30 mmol/L (21-32); CREATININE 0.88 mg/dL (0.51-0.95); GLOBULIN (CALCULATION) 2.9 g/dL; GLUCOSE 59 mg/dL (74-106); POTASSIUM 4.4 mmol/L (3.5-5.1)
[2021-08-27 16:24] LABS: LACTIC ACID 2.9 mmol/L (0.4-1.9)
[2021-08-27 18:56] LABS: BUN/CREAT RATIO (CALC) 16.7 RATIO; CREATININE 0.78 mg/dL (0.51-0.95); POTASSIUM 4.1 mmol/L (3.5-5.1)
[2021-08-28 00:51] LABS: AMPHETAMINES NEGATIVE (NEGATIVE); BARBITURATES NEGATIVE (NEGATIVE); ECSTASY (MDMA) NEGATIVE (NEGATIVE); MARIJUANA (THC) NEGATIVE (NEGATIVE); METHADONE NEGATIVE (NEGATIVE); OPIATES NEGATIVE (NEGATIVE); OXYCODONE NEGATIVE (NEGATIVE)
[2021-08-28 00:54] LABS: BILIRUBIN NEGATIVE (NEGATIVE); BLOOD TRACE-LYSED Ery/uL (NEGATIVE); CLARITY CLEAR (CLEAR); GLUCOSE (U) TRACE mg/dL (NORMAL); LEUKOCYTES 1+ Leu/uL (NEGATIVE); NITRITE NEGATIVE (NEGATIVE); PROTEIN NEGATIVE (NEGATIVE); UROBILINOGEN 0.2 mg/dL (0.2-1.0); pH 6.5 (5.0-9.0)
[2021-08-28 00:55] LABS: COLOR STRAW (YELLOW)
[2021-08-28 01:00] LABS: BACTERIA TRACE
[2021-08-28] MEDS ORDERED: CRESTOR20 MG PO (01:40)
[2021-08-28] MEDS ORDERED: SYNTHROID88 MC1 PO (01:40)
[2021-08-28] MEDS ORDERED: OMNIPOD DASH1 EACH SC (01:41)
[2021-08-28 06:41] LABS: HCT 38.2 % (37.0-47.0); HGB 12.7 g/dl (12.5-16.0); MCH 32.3 pg (25.0-31.0); MCHC 33.2 g/dL (32.0-36.0); MCV 97.2 fL (78.0-100.0); MPV 10.8 fL (6.0-9.5); RBC 3.93 M/uL (4.20-5.40); RDW 11.9 % (11.5-14.0); WBC 4.6 K/uL (4.0-10.5)
[2021-08-28 08:03] LABS: BUN/CREAT RATIO (CALC) 11.1 RATIO; CREATININE 0.81 mg/dL (0.51-0.95); POTASSIUM 4.8 mmol/L (3.5-5.1)
== END 2021-08-28 18:50 | disposition home or self-care (01) ==
LOC: FER 14:18 → FTCU 19:29
PROVIDERS: Internal Medicine; Nurse Practitioner Acute Care; ADMIT Internal Medicine
DX: E10.641 Type 1 diabetes mellitus with hypoglycemia with coma (principal); E87.2 Acidosis; N30.00 Acute cystitis without hematuria; R65.20 Severe sepsis without septic shock; G93.41 Metabolic encephalopathy; U07.1 COVID-19; E10.22 Type 1 diabetes mellitus with diabetic chronic kidney disease; N18.2 Chronic kidney disease, stage 2 (mild); E10.40 Type 1 diabetes mellitus with diabetic neuropathy, unspecified; E10.65 Type 1 diabetes mellitus with hyperglycemia; E03.9 Hypothyroidism, unspecified; E78.5 Hyperlipidemia, unspecified; F17.210 Nicotine dependence, cigarettes, uncomplicated; Z72.3 Lack of physical exercise; Z83.3 Family history of diabetes mellitus; Z79.899 Other long term (current) drug therapy
CPT/HCPCS: 36415; 71045; 80048; 80053; 80305; 81001; 82140; 82550; 82962; 83605; 84145; 84484; 85025; 85610; 85730; 87040; 93005; 94010; 94760; 96365; 96375; 97162; 97166; G0378; G0480; J0696; J2543; J7030; U0002

== ENCOUNTER 2021-10-09 18:39 | Inpatient (IN) | payer MEDICARE ==
[~2021-10-09] VITALS: Ht 160 cm; Wt 51.0 kg
[~2021-10-09 18:39] MED LIST changes: +CRESTOR20 MG PO; +OMNIPOD DASH1 EACH SC; +SYNTHROID88 MC1 PO
[2021-10-09 19:10] LABS: BASOPHIL 0.2 % (0-2); EOSINOPHIL 0 % (0-5); HCT 38.6 % (37.0-47.0); HGB 12.3 g/dl (12.5-16.0); LYMPHOCYTE 3.9 % (15-48); MCH 32.2 pg (25.0-31.0); MCHC 31.9 g/dL (32.0-36.0); MONOCYTE 5.8 % (0-12); MPV 11.4 fL (6.0-9.5); NEUTROPHIL 89.2 % (41-80); NRBC 0; PLT 250 K/uL (150-400); RBC 3.82 M/uL (4.20-5.40); RDW 12.5 % (11.5-14.0); WBC 20.2 K/uL (4.0-10.5)
[2021-10-09 19:24] LABS: LACTIC ACID 5.1 mmol/L (0.4-1.9)
[2021-10-09 19:31] LABS: ALBUMIN 3.4 g/dL (3.4-5.0); BILIRUBIN - TOTAL 1.2 mg/dL (0.2-1.0); BUN/CREAT RATIO (CALC) 23.1 RATIO; CREATININE 2.38 mg/dL (0.51-0.95); GLOBULIN (CALCULATION) 2.8 g/dL; TOTAL PROTEIN 6.2 g/dL (6.4-8.2)
[2021-10-09 19:32] LABS: POTASSIUM 5.8 mmol/L (3.5-5.1)
[2021-10-09 20:06] LABS: INR 0.97 (0.9-1.2); PROTHROMBIN TIME 12.6 SECONDS (11.9-13.9); PTT 24.3 SECONDS (24.9-34.6)
[2021-10-09 21:36] LABS: BUN/CREAT RATIO (CALC) 23.8 RATIO; CREATININE 2.06 mg/dL (0.51-0.95)
[2021-10-09 21:37] LABS: POTASSIUM 3.7 mmol/L (3.5-5.1)
[2021-10-09 22:02] LABS: BILIRUBIN 1+ mg/dL (NEGATIVE); BLOOD NEGATIVE Ery/uL (NEGATIVE); CLARITY CLEAR (CLEAR); COLOR YELLOW (YELLOW); GLUCOSE (U) 2+ mg/dL (NORMAL); LEUKOCYTES NEGATIVE Leu/uL (NEGATIVE); NITRITE NEGATIVE (NEGATIVE); PROTEIN 1+ mg/dL (NEGATIVE); SPECIFIC GRAVITY >=1.030 (1.001-1.030); UROBILINOGEN 0.2 mg/dL (0.2-1.0)
[2021-10-09 22:23] LABS: BACTERIA TRACE; SQUAMOUS EPITHELIAL CELLS RARE; URINARY RBC RARE; URINARY WBC RARE
[2021-10-10 01:05] LABS: BUN/CREAT RATIO (CALC) 25.4 RATIO; C-REACTIVE PROTEIN 0.2 mg/dL (<=0.90); CREATININE 1.93 mg/dL (0.51-0.95)
[2021-10-10 01:10] LABS: POTASSIUM 5.1 mmol/L (3.5-5.1)
--- NOTE | 2021-10-10 04:44 | NUR ---
PT. CAME IN WITH [employer] MANAGEMENT SYSTEM. PT. HAD TWO DEVICES ON HER BODY. THEY WERE REMOVED AND PLACED IN TO A BIOHAZARD BAG WITH A PATIENT LABEL AND THEN PLACED IN A PATIENT BELONGINGS BAG IN HER ROOM ALONG WITH HER CLOTHES AND ROBE. DEVANTE,RN
[2021-10-10 06:48] LABS: BASOPHIL 0.2 % (0-2); EOSINOPHIL 0 % (0-5); HCT 35.3 % (37.0-47.0); HGB 11.6 g/dl (12.5-16.0); LYMPHOCYTE 4.2 % (15-48); MCH 32.2 pg (25.0-31.0); MCHC 32.9 g/dL (32.0-36.0); MCV 98.1 fL (78.0-100.0); MPV 10.7 fL (6.0-9.5); NEUTROPHIL 86.4 % (41-80); NRBC 0; PLT 262 K/uL (150-400); RDW 12.7 % (11.5-14.0); RETICULOCYTE COUNT 1.3 % (1.0-2.0); WBC 22.5 K/uL (4.0-10.5)
[2021-10-10 06:50] LABS: CREATININE 1.69 mg/dL (0.51-0.95)
--- NOTE | 2021-10-10 10:56 | NUR ---
10/10/21 Ms. Lang is in isolation due to dx of COVID. This social work manager has been unable to reach Ms. Lang or family by telephone. Will continue attempting to reach pt / family in order to conduct the initial assessment.
[2021-10-10 13:06] LABS: BUN/CREAT RATIO (CALC) 27.4 RATIO; CREATININE 1.46 mg/dL (0.51-0.95); POTASSIUM 4.6 mmol/L (3.5-5.1)
[2021-10-10 18:48] LABS: BUN/CREAT RATIO (CALC) 25.6 RATIO; CREATININE 1.29 mg/dL (0.51-0.95); POTASSIUM 4.2 mmol/L (3.5-5.1)
[2021-10-11 05:27] LABS: HCT 33.5 % (37.0-47.0); MCH 32.3 pg (25.0-31.0); MCHC 32.8 g/dL (32.0-36.0); MCV 98.2 fL (78.0-100.0); MPV 10.1 fL (6.0-9.5); RBC 3.41 M/uL (4.20-5.40); RDW 12.9 % (11.5-14.0); WBC 11.4 K/uL (4.0-10.5)
[2021-10-11 06:30] LABS: BUN/CREAT RATIO (CALC) 22.5 RATIO; CREATININE 1.11 mg/dL (0.51-0.95); POTASSIUM 4.4 mmol/L (3.5-5.1)
--- NOTE | 2021-10-11 15:26 | NUR ---
SET WALK TEST TO [facility] AT [facility] EMAILED INFORMATION TO [facility] AND [facility]
--- NOTE | 2021-10-11 17:58 | NUR ---
1720 DISCHARGED HOME. DISCHARGE INSTRUCTIONS GIVEN TO PATIENT VERBALIZED UNDERSTANDING OF INSTRUCTIONS. OXYGEN DELIVERED BY [facility], INSTRUCTED TO CALL [facility] WHEN SHE GETS HOME FOR HOME O2. INSTRUCTED ON USE OF PULSE OX AND OXYGEN.QUESTIONS ANSWERED
== END 2021-10-11 17:20 | disposition home or self-care (01) | DRG 637 ==
LOC: FER 18:39 → FICU 23:08
PROVIDERS: Emergency Medicine; Family Medicine; Internal Medicine; Nurse Practitioner Acute Care; ADMIT Allergy & Immunology Allergy
PROC: 02HV33Z Insertion of Infusion Device into Superior Vena Cava, Percutaneous Approach (ICD-10-PCS; principal; 2021-10-09)
PROC: 0T9B70Z Drainage of Bladder with Drainage Device, Via Natural or Artificial Opening (ICD-10-PCS; 2021-10-09)
PROC: 3E033XZ Introduction of Vasopressor into Peripheral Vein, Percutaneous Approach (ICD-10-PCS; 2021-10-09)
PROC: 3E03329 Introduction of Other Anti-infective into Peripheral Vein, Percutaneous Approach (ICD-10-PCS; 2021-10-09)
PROC: 8E0ZXY6 Isolation (ICD-10-PCS; 2021-10-09)
DX: E10.10 Type 1 diabetes mellitus with ketoacidosis without coma (principal); G93.41 Metabolic encephalopathy; U07.1 COVID-19; R57.1 Hypovolemic shock; R65.11 Systemic inflammatory response syndrome (SIRS) of non-infectious origin with acute organ dysfunction; J96.91 Respiratory failure, unspecified with hypoxia; N17.9 Acute kidney failure, unspecified; J43.9 Emphysema, unspecified; E87.5 Hyperkalemia; E10.22 Type 1 diabetes mellitus with diabetic chronic kidney disease; N18.2 Chronic kidney disease, stage 2 (mild); D63.1 Anemia in chronic kidney disease; E10.319 Type 1 diabetes mellitus with unspecified diabetic retinopathy without macular edema; E10.40 Type 1 diabetes mellitus with diabetic neuropathy, unspecified; F17.210 Nicotine dependence, cigarettes, uncomplicated; D50.9 Iron deficiency anemia, unspecified; E03.9 Hypothyroidism, unspecified; F41.1 Generalized anxiety disorder; E78.5 Hyperlipidemia, unspecified; Z90.49 Acquired absence of other specified parts of digestive tract; Z98.51 Tubal ligation status; Z88.8 Allergy status to other drugs, medicaments and biological substances
CPT/HCPCS: 36415; 36600; 70450; 71045; 80048; 80053; 81001; 82009; 82140; 82607; 82803; 82962; 83540; 83550; 83605; 84145; 84439; 84443; 84481; 84484; 85025; 85610; 85730; 86140; 87040; 93005; 94760; 96361; 96365; 96375; 96376; C9113; J0692; J1650; J2405; J2543; J3370; J3480; J7030; J7050; U0002